=== PATIENT | male | born 1985 | race Caucasian/White ===

== ENCOUNTER 2016-09-25 02:55 | Emergency (ER) | payer OTHER ==
[~2016-09-25] VITALS: Ht 175.3 cm; Wt 68.0 kg
[2016-09-25] MEDS ORDERED: PROPARACAINE HCL 0.5% 15 ML OPHTHALMIC SOLUTION OU ONE (03:30)
[2016-09-25] MEDS ORDERED: ACETAMINOPHEN 500 MG TABLET PO ONE (04:15)
[2016-09-25] MEDS ORDERED: ERYTHROMYCIN 0.5% 3.5 GM TUBE OPHTHALMIC OINTMENT OS ONE (04:15)
[2016-09-25 04:18] VITALS: BP 127/66
== END 2016-09-25 04:22 | disposition home or self-care (01) ==
LOC: EMS 02:56
DX: S00.12XA Contusion of left eyelid and periocular area, initial encounter (principal); F10.129 Alcohol abuse with intoxication, unspecified; W50.0XXA Accidental hit or strike by another person, initial encounter; Y93.89 Activity, other specified; Y92.89 Other specified places as the place of occurrence of the external cause; Y99.8 Other external cause status
CPT/HCPCS: 99284

== ENCOUNTER 2017-01-18 19:43 | Emergency (ER) | payer OTHER ==
[~2017-01-18] VITALS: Ht 175.3 cm; Wt 58.0 kg
[2017-01-18] MEDS ORDERED: DiphenhydrAMINE HCL 25 MG CAPSULE PO ONE (21:45)
[2017-01-18] MEDS ORDERED: CEPHALEXIN MONOHYDRATE 500 MG CAPSULE PO ONE (21:45)
[2017-01-18] MEDS ORDERED: PredniSONE 20 MG TABLET PO ONE (21:45)
[2017-01-18 21:55] VITALS: BP 121/82
== END 2017-01-18 22:24 | disposition home or self-care (01) ==
LOC: EMS 19:46
DX: L30.9 Dermatitis, unspecified (principal); L08.9 Local infection of the skin and subcutaneous tissue, unspecified; Z91.09 Other allergy status, other than to drugs and biological substances
CPT/HCPCS: 99284; J7512

== ENCOUNTER 2018-01-23 17:38 | Emergency (ER) | payer OTHER ==
[~2018-01-23] VITALS: Ht 175.3 cm; Wt 65.9 kg
[2018-01-23] MEDS ORDERED: BICT1TAB PO (17:51)
[2018-01-23] MEDS ORDERED: ALBUTEROL SULFATE 2.5 MG/0.5 ML NEB SOLUTION NEB ONE (18:00)
[2018-01-23] MEDS ORDERED: IPRATROPIUM BROMIDE 0.5 MG/2.5 ML NEB SOLUTION NEB ONE ×2 (18:00→18:45)
[2018-01-23] MEDS ORDERED: 0.9% SODIUM CHLORIDE 5 ML NEB SOLUTION NEB ONE ×2 (18:03→18:50)
[2018-01-23] MEDS ORDERED: ALBUTEROL SULFATE 5 MG/ML 20 ML NEB SOLN [BULK] NEB ONE (18:45)
[2018-01-23] MEDS ORDERED: PredniSONE 20 MG TABLET PO ONE (18:45)
[2018-01-23] MEDS ORDERED: ALBUTEROL SULFATE HFA 90 MCG/PUFF 8 GM INHALER IH ONE (20:45)
[2018-01-23] MEDS ORDERED: LIDOCAINE/PF 1% 2 ML VIAL IM ONE (20:45)
[2018-01-23] MEDS ORDERED: CefTRIAXone SODIUM 1 GM/VIAL IM ONE (20:45)
[2018-01-23] MEDS ORDERED: AZITHROMYCIN 250 MG TABLET PO ONE (20:45)
[2018-01-23 22:18] VITALS: BP 128/83
== END 2018-01-23 22:21 | disposition home or self-care (01) ==
LOC: EMS 17:38
DX: J45.909 Unspecified asthma, uncomplicated (principal); N34.2 Other urethritis; B20 Human immunodeficiency virus [HIV] disease; Z91.048 Other nonmedicinal substance allergy status; Z79.899 Other long term (current) drug therapy
CPT/HCPCS: 71045; 94644; 96372; 99285; J0696; J3490; J7512; J7611; J7613; 94640; J3535

== ENCOUNTER 2022-02-28 20:53 | Emergency (ER) | payer OTHER ==
[~2022-02-28] VITALS: Ht 172.7 cm; Wt 68.6 kg
[~2022-02-28 20:53] MED LIST: BICT1TAB PO
[2022-02-28] MEDS ORDERED: IPRATROPIUM BROMIDE 0.5 MG/2.5 ML NEB SOLUTION NEB ONE (22:45)
[2022-02-28] MEDS ORDERED: PredniSONE 20 MG TABLET PO ONE (22:45)
[2022-02-28] MEDS ORDERED: ALBUTEROL SULFATE 2.5 MG/0.5 ML NEB SOLUTION NEB ONE (22:45)
[2022-03-01] MEDS ORDERED: PRED-554 PO (00:56)
[2022-03-01 01:33] VITALS: BP 116/63
== END 2022-03-01 01:35 | disposition home or self-care (01) ==
LOC: EMS 20:57
DX: J45.909 Unspecified asthma, uncomplicated (principal); Z98.84 Bariatric surgery status; Z98.890 Other specified postprocedural states; Z91.09 Other allergy status, other than to drugs and biological substances
CPT/HCPCS: 99285; 94640; J7512